=== PATIENT | male | born 1980 | race African-American/Black ===

== ENCOUNTER 2017-07-18 21:05 | Emergency (ER) | payer OTHER ==
[~2017-07-18] VITALS: Ht 167.6 cm; Wt 61.6 kg
[~2017-07-18 21:05] MED LIST: AMOXICILLIN500 MG PO; NAPROSYN500 MG PO
[2017-07-18] MEDS ORDERED: NORCO 5/3251 TABLET PO (22:39)
[2017-07-18 22:49] VITALS: BP 127/81
== END 2017-07-18 23:00 | disposition home or self-care (01) ==
LOC: EME 21:05
PROC: 2W3CX1Z Immobilization of Right Lower Arm using Splint (ICD-10-PCS; principal; 2017-07-18)
DX: S62.306A Unspecified fracture of fifth metacarpal bone, right hand, initial encounter for closed fracture (principal); W50.0XXA Accidental hit or strike by another person, initial encounter; Y92.89 Other specified places as the place of occurrence of the external cause; Y99.0 Civilian activity done for income or pay
CPT/HCPCS: 73130; 99281; 99284